=== PATIENT | male | born 1980 | race African-American/Black ===

== ENCOUNTER 2020-10-31 21:32 | Emergency (ER) | payer BC, SELFPAY ==
--- NOTE | 2020-10-31 23:54 | ER ---
Nurse's Notes [facility] Name: Olu Taylor Age: 39 yrs Sex: Male : 1980 Arrival Date: 10/31/2020 Time: 21:44 Bed Waiting Private MD: Diagnosis: Presentation: 10/31 22:20 Chief complaint: Patient states: Mouth dry, fingers tingling. Pt stated, "I feel like kg an out of body experience, like I'm high. I took a 50 mg CBD with Delta 8 Gummy and I had never had one and I dont feel right.". Coronavirus screen: Client denies travel out of the [place] in the last 14 days. At this time, unable to obtain information related to travel outside the [place] At this time, the client does not indicate any symptoms associated with coronavirus-19. Ebola Screen: Patient negative for fever greater than or equal to 101.5 degrees Fahrenheit, and additional compatible Ebola Virus Disease symptoms Patient denies exposure to infectious person. Patient denies travel to an Ebola-affected area in the 21 days before illness onset. Initial Sepsis Screen: Does the patient meet any 2 criteria? No. Patient's initial sepsis screen is negative. Does the patient have a suspected source of infection? No. Patient's initial sepsis screen is negative. Risk Assessment: Do you want to hurt yourself or someone else? Patient reports no desire to harm self or others. Onset of symptoms was October 31, 2020 at 18:00. 22:20 Method Of Arrival: EMS: [facility] kg 22:20 Acuity: TAWNY 5 kg Triage Assessment: 22:24 General: Appears in no apparent distress. Behavior is calm, cooperative, appropriate kg for age, quiet. Pain: Denies pain. Neuro: Reports Pt stated, "I'm sleepy but not sleepy." Numbness that comes and goes. Historical: - Allergies: 22:24 meperidine HCl; kg 22:24 Demerol; kg - Home Meds: 22:24 None [Active]; kg - PMHx: 22:24 None; kg - PSHx: 22:24 Left knee ACL; kg - Immunization history:: Adult Immunizations not up to date, Client reports having NOT received the Covid vaccine. - Social history:: Smoking status: Reported history of juuling and/or vaping. Screenin:27 Abuse screen: Denies threats or abuse. Denies injuries from another. Nutritional kg screening: No deficits noted. Tuberculosis screening: No symptoms or risk factors identified. Fall Risk None identified. Vital Signs: 22:20 BP 133 / 75; Pulse 82; Resp 20; Temp 98.3(TE); Pulse Ox 100% on R/A; Weight 122.47 kg kg (R); Height 5 ft. 11 in. (180.34 cm); Pain 0/10; 22:20 Body Mass Index 37.66 (122.47 kg, 180.34 cm) kg ED Course: 21:44 Patient arrived in ED. bp1 22:24 Triage completed. kg 22:24 Arm band placed on right wrist. kg 22:27 Patient has correct armband on for positive identification. kg Administered Medications: No medications were administered Outcome: 23:54 Patient left the ED. kg Signatures: Franci Marie Kristen, RN RN kg Corrections: (The following items were deleted from the chart) 22:26 22:24 PSHx: None; kg kg
[2020-11-01 00:44] VITALS: BP 133/75; TEMP 98.3; O2SAT 100
== END 2020-10-31 23:54 | disposition left against medical advice (07) ==
LOC: ER 21:32
DX: Z53.21 Procedure and treatment not carried out due to patient leaving prior to being seen by health care provider (principal)
CPT/HCPCS: 99282

== ENCOUNTER → 2023-05-11 | Emergency (ER) | payer OTHER, SELFPAY ==
--- OUTSIDE RECORDS SUMMARY | 2023-05-11 20:44 | XMS REPORT | Continuity of Care Document ---
Author Name Unknown Address [address] [place] [address] [facility] thconnect Address [address] [place] [address] Care Team Providers Care Chip Loft Worker Name Role Phone Andreas Mustafa Jose Primary Care Physician [phone] Therapy, Adc Covid Infusion Attending Clinician Unavailable Rocco Sotomayor MD Attending Clinician [phone] ROCCO SOTOMAYOR Attending Clinician Unavailable Doctor Unassigned, [place] Attending Clinician U navailable Allergies, Adverse Reactions, Alerts Allergy Name Allergy Type Status Severity Reaction(s) Onset Date Inactive Date Treating Clinician Comments Source MEPERIDI NE DRUG INGREDI Active Other-Cmnt 12-11 00:00: 00 [facility] Meperidi ne Propensi ty to adverse reaction s Active Other - See comments 12-11 00:00: 00 seizures [facility] NO KNOWN ALLERGIE S Drug Class Active [facility] Social History Social Habit Start Date Stop Date Quantity Comments Source Sex Assigned At 1980 00:00:00 1980 00:00:00 [facility] Smoking Status Start Date Stop Date Source Unknown if ever smoked [facility] Medications Ordered Medication Name Filled Medication Name Start Date Stop Date Current Medication? Ordering Clinician Indication Dosage Frequency Signature (SIG) Comments Components Source casirivimab -imdevimab (REGEN-COV (EUA)) injection 1,200 mg 12-11 14:15: 00 12-11 13:08 :00 No [id number] 1200mg 1,200 mg, Subcutaneo us, ONCE, 1 dose, On 12/11/20 at 0915, Routine [facility] casirivimab -imdevimab (REGEN-COV (EUA)) injection 1,200 mg 12-11 14:15: 00 12-11 13:08 :00 No [id number] 1200mg 1,200 mg, Subcutaneo us, ONCE, 1 dose, On 12/11/20 at 0915, Routine [facility] Vital Signs Vital Name Observation Time Observation Value Comments S hussain Systolic blood pressure 2020-12-11 13:53:00 111 mm[Hg] [facility] Diastolic blood pressure 2020-12-11 13:53:00 68 mm[Hg] [facility] Heart rate 2020-12-11 13:53:00 89 /min [facility] Body temperature 2020-12-11 13:53:00 37.56 Xin [facility] Respiratory rate 2020-12-11 13:53:00 21 /min [facility] Oxygen saturation in Arterial blood by Pulse oximetry 2020-12-11 13:53:00 95 /min [facility] Body height 2020-12-11 13:09:00 180.3 cm [facility] Body weight 2020-12-11 13:09:00 117.935 kg [facility] BMI 2020-12-11 13:09:00 36.26 kg/m2 [facility] Procedures Procedure Date / Time Performed Performing Clinicia n Source [id number] CONSENT 2020-12-11 05:01:00 Doctor Sukhdeep signed, Elrosa [facility] Encounters Start Date/Time End Date/Time Encounter Type Admission Type Attending Clinicians Care Facility Care Department Encounter ID Source 2020-12-11 08:02:28 2020-12-11 09:02:28 Nurse Visit Therapy, Adc Covid Infusion Rocco Sotomayor [facility] [id number] [facility] 2020-12-11 08:00:00 2020-12-11 08:00:00 Outpatient ROCCO MCCRAY [facility] [id number] [facility] 2020-12-11 00:00:00 2020-12-11 00:00:00 Orders Only Doctor Unassigned, [place]a [facility] [id number] [facility]
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
[2023-05-11 22:01] VITALS: BP 148/76; TEMP 98; O2SAT 99
== END ==
LOC: ER 20:42
DX: M25.511 Pain in right shoulder (principal); R51.9 Headache, unspecified; V49.40XA Driver injured in collision with unspecified motor vehicles in traffic accident, initial encounter; Z88.5 Allergy status to narcotic agent; Z88.8 Allergy status to other drugs, medicaments and biological substances
CPT/HCPCS: 70450; 71045; 72125; 99283